=== PATIENT | female | born 1955 | race Caucasian/White ===

== ENCOUNTER 2018-03-20 17:29 | Inpatient (IN) | payer OTHER ==
[~2018-03-20] VITALS: Ht 162.6 cm; Wt 60.0 kg
[2018-03-20 17:42] VITALS: BP 176/75; PULSE 76; RESP 16; TEMP 97.1; O2SAT 95
[2018-03-20] MEDS ORDERED: ATEN25TA PO (18:08)
[2018-03-20] MEDS ORDERED: CYAN1SUB SL (18:08)
--- NOTE | 2018-03-20 18:16 | PD ---
HPI Chief Complaint: Laceration/Skin Injury Time Seen by Provider: 17:52 Travel History International Travel<30 days: No Contact w/Intl Traveler<30days: No Traveled to known affect area: No History of Present Illness HPI 62-year-old female presents to emergency department with complaint of a laceration to her left proximal thigh today from a power barker operator that was on and at full power in spring well water. Unknown tetanus status. Reports swelling to her left knee and air coming from the site of the laceration. Reports decreased range of motion of her knee. Denies paresthesias, loss of sensation to the affected extremity. Denies anticoagulant therapy. Has not taken any medication or trying treatments to alleviate her symptoms. Bandage in place to control bleeding. Bleeding is controlled. Rates pain 10/10. Worse with movement and palpation. Better at rest. Primary care provider is Dr. Rivas. Allergies to Macrobid and Pyridium. History of asthma, COPD, TIA, tachycardia. Has no other medical complaints. No other modifying factors or associated signs and symptoms. PFSH Past Medical History Arthritis: Yes Asthma: Yes Heart Rhythm Problems: Yes (tachy) COPD: Yes Cerebrovascular Accident: Yes Diminished Hearing: No Respiratory: Yes Tetanus Vaccination: < 5 Years Influenza Vaccination: No ?: Not Tubal Ligation: Yes Past Surgical History Cholecystectomy: Yes Eye Surgery: Yes (bilat) Other Surgery: Yes (R breast biopsy) Social History Alcohol Use: Yes (wine occ) Tobacco Use: No (former) Substance Use: No Allergies-Medications (Allergen,Severity, Reaction): Coded Allergies: nitrofurantoin (Verified Allergy, Unknown, CHEST PAIN SWEATING, 03/20/18) phenazopyridine (Verified Allergy, Unknown, CHEST APODACA SWEATING, 03/20/18) Reported Meds & Prescriptions Reported Meds & Active Scripts Active Reported B-12 (Cyanocobalamin) 5,000 Mcg Subl 5,000 Mcg SL Atenolol 25 Mg Tab 25 Mg PO DAILY Review of Systems Except as stated in HPI: all other systems reviewed are Neg Physical Exam Narrative GENERAL: Well-nourished, well-developed femur patient, in no acute distress; afebrile, nontoxic-appearing SKIN: Warm and dry. Approximately 1 cm puncture wound/laceration to the anterior aspect of the left proximal thigh, just above the knee and more to the medial aspect HEAD: Atraumatic. Normocephalic. EYES: Pupils equal and round. No scleral icterus. No injection or drainage. ENT: Mucosa pink and moist. Airway patent. NECK: Trachea midline. CARDIOVASCULAR: Regular rate. RESPIRATORY: No accessory muscle use. GASTROINTESTINAL: Flat MUSCULOSKELETAL: Left knee edematous with subcutaneous emphysema on palpation, non/erythematous, and without ecchymosis; proximately 30-45 flexion; point tenderness to the medial aspect; no obvious deformity. Left lower extremity is supple and non-tense with 2+ pedal pulse and sensory intact. NEUROLOGICAL: Awake and alert. Oriented 3. No obvious cranial nerve deficits. Motor grossly within normal limits. Normal speech. PSYCHIATRIC: Appropriate mood and affect; insight and judgment normal. Data Data Last Documented VS Vital Signs Date Time Temp Pulse Resp B/P (MAP) Pulse Ox O2 Delivery O2 Flow Rate FiO2 03/20/18 17:42 97.1 76 16 176/75 (108) 95 Orders Orders Knee, Complete (4vws) (03/20/18 18:16) Complete Blood Count With Diff (03/20/18 18:16) Comprehensive Metabolic Panel (03/20/18 18:16) Prothrombin Time / Inr (Pt) (03/20/18 18:16) Act Partial Throm Time (Ptt) (03/20/18 18:16) Iv Access Insert/Monitor (03/20/18 18:16) Morphine Inj (Morphine Inj) (03/20/18 18:30) Sodium Chloride 0.9% Flush (Ns Flush) (03/20/18 18:30) Ondansetron Odt (Zofran Odt) (03/20/18 18:30) Gentamicin 80 Mg Premix (Gentamicin 80 M (03/20/18 18:45) Ciprofloxacin 400 Mg Premix (Cipro 400 M (03/20/18 18:45) Electrocardiogram (03/20/18 19:00) Chest, Single Ap (03/20/18 19:00) Consult Orthopedic (03/20/18 ) Admit Order (Ed Use Only) (03/20/18 19:08) Labs Laboratory Tests Test 03/20/18 18:57 White Blood Count 5.4 TH/MM3 Red Blood Count 3.95 MIL/MM3 Hemoglobin 13.1 GM/DL Hematocrit 37.0 % Mean Corpuscular Volume 93.7 FL Mean Corpuscular Hemoglobin 33.3 PG Mean Corpuscular Hemoglobin Concent 35.5 % Red Cell Distribution Width 13.2 % Platelet Count 215 TH/MM3 Mean Platelet Volume 9.2 FL Neutrophils (%) (Auto) 60.5 % Lymphocytes (%) (Auto) 25.2 % Monocytes (%) (Auto) 6.8 % Eosinophils (%) (Auto) 5.4 % Basophils (%) (Auto) 2.1 % Neutrophils # (Auto) 3.2 TH/MM3 Lymphocytes # (Auto) 1.4 TH/MM3 Monocytes # (Auto) 0.4 TH/MM3 Eosinophils # (Auto) 0.3 TH/MM3 Basophils # (Auto) 0.1 TH/MM3 CBC Comment DIFF FINAL Differential Comment Blood Urea Nitrogen 15 MG/DL Creatinine 0.68 MG/DL Random Glucose 90 MG/DL Total Protein 7.4 GM/DL Albumin 4.1 GM/DL Calcium Level 8.9 MG/DL Alkaline Phosphatase 68 U/L Aspartate Amino Transf (AST/SGOT) 36 U/L Alanine Aminotransferase (ALT/SGPT) 32 U/L Total Bilirubin 0.4 MG/DL Sodium Level 134 MEQ/L Potassium Level 4.4 MEQ/L Chloride Level 102 MEQ/L Carbon Dioxide Level 24.8 MEQ/L Anion Gap 7 MEQ/L Estimat Glomerular Filtration Rate 87 ML/MIN [facility] Medical Decision Making Medical Screen Exam Complete: Yes Emergency Medical Condition: Yes Medical Record Reviewed: Yes Differential Diagnosis Puncture wound, subcutaneous emphysema of the left knee, laceration Narrative Course 62-year-old female with a puncture wound of the left knee and subcutaneous emphysema of the left knee. Dr. Potts evaluated the patient and recommended to call orthopedic surgeon, start IV, draw labs for suspected need to go to the OR for irrigation of the knee, and IV Cipro. Orders entered. Left knee x-ray, morphine, Zofran ordered. 1819: Call placed to orthopedic surgeon. 1855: I spoke with CAMILO Davis and patient will be admitted he recommended to add gentamicin. Gentamicin ordered. Preop orders entered. Call placed to ROSAMARIA. 1907: I spoke with ROSAMARIA Lockett and report given for patient admission. Physician Communication Physician Communication CAMILO Davis (Dr. Rocha) ROSAMARIA Lockett Diagnosis Primary Impression: Puncture wound of left knee Qualified Codes: S81.032A - Puncture wound without foreign body, left knee, initial encounter Additional Impression: Subcutaneous emphysema of left knee Admitting Information Admitting Physician Requests: Observation Alesha Engel Mar 20, 2018 18:15
--- NOTE | 2018-03-20 18:25 | PD ---
Physical Exam Date Seen by Provider: Mar 20, 2018 Narrative This patient presents with an injury to her left knee. She was using a portable power tool repairer with well water. She inadvertently "injected" the water, which was under pressure, into her left knee. She subsequently presented to us for evaluation and treatment. Unsure as to the date of her last tetanus shot. She reports an allergy to Macrobid. Data Data Last Documented VS Vital Signs Date Time Temp Pulse Resp B/P (MAP) Pulse Ox O2 Delivery O2 Flow Rate FiO2 03/20/18 17:42 97.1 76 16 176/75 (108) 95 Orders Orders Knee, Complete (4vws) (03/20/18 18:16) Complete Blood Count With Diff (03/20/18 18:16) Comprehensive Metabolic Panel (03/20/18 18:16) Prothrombin Time / Inr (Pt) (03/20/18 18:16) Act Partial Throm Time (Ptt) (03/20/18 18:16) Iv Access Insert/Monitor (03/20/18 18:16) Morphine Inj (Morphine Inj) (03/20/18 18:30) Sodium Chloride 0.9% Flush (Ns Flush) (03/20/18 18:30) Ondansetron Odt (Zofran Odt) (03/20/18 18:30) MDM Supervised Visit with BRIE: Yes Narrative Course I, Dr. Potts, have reviewed the advance practice practitioner's documentation and am in agreement, met with the patient face to face, made the diagnosis, and the medical decision making was done by me. *My assessment and Findings: She has a puncture wound just superior to the patella. She has crepitus and tenderness to a couple of centimeters below the patella. I have asked Alesha to update her tetanus. She will consult orthopedics for further advice. In the meantime, plain films will be done. I suspect that this patient will need to be transported to [facility] [place] management. Please see Alesha Engel NP's note for results of laboratory and radiographic evaluation, ED course, final diagnosis and disposition Milli Potts MD Mar 20, 2018 18:25
[2018-03-20] MEDS ORDERED: MORPHINE SULFATE 4 MG/ML INJ IV PUSH ONE (18:30)
[2018-03-20] MEDS ORDERED: SODIUM CHLORIDE 0.9% FLUSH 10 ML FLUSH IV FLUSH PRN ×2 (18:30→19:15)
[2018-03-20] MEDS ORDERED: ONDANSETRON ODT 4 MG TAB PO ONE (18:30)
[2018-03-20] MEDS ORDERED: GENTAMICIN 80 MG IV ONE (18:45)
[2018-03-20] MEDS ORDERED: CIPROFLOXACIN 400 MG PREMIX 200 ML IV ONE (18:45)
[2018-03-20 19:03] LABS: AUTOMATED NEUTROPHIL # 3.2 TH/MM3 (1.8-7.7); BASOPHIL # 0.1 TH/MM3 (0-0.2); BASOPHIL % 2.1 % (0.0-2.0); EOSINOPHIL # 0.3 TH/MM3 (0-0.4); EOSINOPHIL % 5.4 % (0.0-4.0); HEMOGLOBIN 13.1 GM/DL (11.6-15.3); LYMPH % 25.2 % (9.0-44.0); LYMPHOCYTE # 1.4 TH/MM3 (1.0-4.8); MEAN CELL VOLUME 93.7 FL (80.0-100.0); MEAN CORPUSCULAR HEMOGLOBIN 33.3 PG (27.0-34.0); MEAN CORPUSCULAR HGB CONC 35.5 % (32.0-36.0); MEAN PLATELET VOLUME 9.2 FL (7.0-11.0); MONO % 6.8 % (0.0-8.0); MONOCYTE # 0.4 TH/MM3 (0-0.9); NEUT % 60.5 % (16.0-70.0); PLATELET COUNT 215 TH/MM3 (150-450); RED BLOOD COUNT 3.95 MIL/MM3 (4.00-5.30); RED CELL DISTRIBUTION WIDTH 13.2 % (11.6-17.2); WHITE BLOOD COUNT 5.4 TH/MM3 (4.0-11.0)
[2018-03-20] MEDS ORDERED: MORPHINE SULFATE 4 MG/ML INJ IV PUSH PRN (19:15)
[2018-03-20] MEDS ORDERED: METOCLOPRAMIDE HCL 10 MG/2 ML VIAL IV PUSH PRN (19:15)
[2018-03-20] MEDS ORDERED: BISACODYL 10 MG SUPP RECTAL PRN (19:15)
[2018-03-20] MEDS ORDERED: SENNOSIDES 8.6 MG TAB PO PRN (19:15)
[2018-03-20] MEDS ORDERED: LACTULOSE SYRUP 20 GM/30 ML CUP PO PRN (19:15)
[2018-03-20] MEDS ORDERED: MAGNESIUM HYDROXIDE SUSP 30 ML CUP PO PRN (19:15)
[2018-03-20] MEDS ORDERED: ACETAMINOPHEN 325 MG TAB PO PRN (19:15)
[2018-03-20 19:21] LABS: CHLORIDE 102 MEQ/L (98-107); SODIUM (NA) 134 MEQ/L (136-145)
[2018-03-20 19:24] LABS: ALBUMIN 4.1 GM/DL (3.4-5.0); BICARBONATE 24.8 MEQ/L (21.0-32.0); BLOOD UREA NITROGEN 15 MG/DL (7-18); CALCIUM 8.9 MG/DL (8.5-10.1); GLUCOSE,RANDOM 90 MG/DL (74-106)
[2018-03-20 19:27] LABS: ALT (GPT) 32 U/L (10-53); AST (GOT) 36 U/L (15-37); CREATININE 0.68 MG/DL (0.50-1.00); GLOMERULAR FILTRATION RATE 87 ML/MIN (>89)
[2018-03-20 19:29] LABS: TOTAL BILIRUBIN ADULT 0.4 MG/DL (0.2-1.0); TOTAL PROTEIN 7.4 GM/DL (6.4-8.2)
[2018-03-20 19:30] LABS: ALKALINE PHOSPHATASE 68 U/L (45-117)
[2018-03-20 19:31] LABS: INTERNATIONAL NORMALIZED RATIO 1.1 RATIO; PROTHROMBIN TIME - PATIENT 10.7 SEC (9.8-11.6)
[2018-03-20] MEDS ORDERED: TETANUS/DIPHTHERIA TOXOID ADULT 0.5 ML VIAL IM ONE (19:45)
--- NOTE | 2018-03-20 20:02 | RADRPT ---
EXAM DATE: 03/20/2018 7:48 PM EDT AGE/SEX: 62 years / Female INDICATIONS: Fall. Left knee pain. CLINICAL DATA: This is the patient's initial encounter. Patient reports that signs and symptoms have been present for 1 day and indicates a pain score of 7/10. MEDICAL/SURGICAL HISTORY: None. None. COMPARISON: No prior exams available for comparison. FINDINGS: There is a laceration with air in the subcutaneous tissues of the distal thigh and proximal leg. Ques tion avulsion fracture at the superior aspect of the patella. No dislocation. Meniscal calcifications noted. CONCLUSION: Air in soft tissues presumably from laceration. Questionable tiny avulsion fracture superior pole of the patella. No significant joint effusion. Electronically signed by: Jason Stapleton MD 03/20/2018 8:01 PM EDT
[2018-03-20] MEDS: SODIUM CHLOR 0.9% 1000 ML INJ 1,000 ML IV SCH (20:17)
[2018-03-20] MEDS: DOCUSATE SODIUM 50 MG/SENNA 8.6 MG TAB PO SCH (21:00)
[2018-03-20] MEDS: SODIUM CHLORIDE 0.9% FLUSH 10 ML FLUSH IV FLUSH SCH (21:00)
[2018-03-20 22:02] VITALS: BP 109/56; PULSE 57; RESP 16; O2SAT 97
[2018-03-20] MEDS ORDERED: LATA0.002 EACH EYE (22:08)
[2018-03-20] MEDS ORDERED: DICL75TA PO (22:08)
--- NOTE | 2018-03-20 23:14 | HHI.HP ---
HPI Service [facility] Primary Care Physician Non-Staff Admission Diagnosis Puncture wound of left knee with subcutaneous emphysema Diagnoses: Chief Complaint: Left knee pain Travel History International Travel<30 Days: No Contact w/Intl Traveler <30 Da: No Traveled to Known Affected Are: No History of Present Illness 62-year-old female with a history of arthritis, COPD, tachycardia, OCD and asthma presented to the ED with complaints of a laceration on her left knee. She states she was using a prune washer today and the spray nozzle hit the top of her knee and the force of the water caused a laceration. Patient noted crackling under the skin around the laceration site. Patient states the pain is a throbbing, intermittent, 10/10, with no radiation, worse with movement and palpation, better with rest. Denies any associated symptoms such as chest pain or shortness of breath. Review of Systems Except as stated in HPI: all other systems reviewed are Neg Past Family Social History Past Medical History Arthritis COPD Tachycardia Asthma Past Surgical History Cholecystectomy Breast biopsy Bilateral eye surgery Reported Medications Reported Meds & Active Scripts Active Reported Latanoprost Opth Drops (Latanoprost) 0.005% Drops 1 Drop EACH EYE HS Refrigerate until opened. Diclofenac Sodium DR (Diclofenac Sodium) 75 Mg Tabdr 75 Mg PO BID B-12 (Cyanocobalamin) 5,000 Mcg Subl 5,000 Mcg SL Atenolol 25 Mg Tab 25 Mg PO DAILY Allergies: Coded Allergies: nitrofurantoin (Verified Allergy, Unknown, CHEST PAIN SWEATING, 03/20/18) phenazopyridine (Verified Allergy, Unknown, CHEST APODACA SWEATING, 03/20/18) Active Ordered Medications Current Medications Medications (Trade) Dose Ordered Sig/Christina Route Start Time Stop Time Status Last Admin Sodium Chloride 1,000 ml @ 100 mls/hr Q10H IV 03/20/18 19:06 03/20/18 20:17 (NS Flush) 2 ml UNSCH PRN IV FLUSH 03/20/18 19:15 (NS Flush) 2 ml BID IV FLUSH 03/20/18 21:00 03/20/18 21:00 (Reglan Inj) 5 mg Q6H PRN IV PUSH 03/20/18 19:15 (Tylenol) 650 mg Q6H PRN PO 03/20/18 19:15 ([place] 5-325 Mg) 1 tab Q4H PRN PO 03/20/18 19:15 (Bree-Colace) 1 tab BID PO 03/20/18 21:00 (Milk Of Magnesia Liq) 30 ml Q12H PRN PO 03/20/18 19:15 (Senokot) 17.2 mg Q12H PRN PO 03/20/18 19:15 (Dulcolax Supp) 10 mg DAILY PRN RECTAL 03/20/18 19:15 (Lactulose Liq) 30 ml DAILY PRN PO 03/20/18 19:15 (Xalatan 0.005% Opth Soln) 1 drop HS EACH EYE 03/21/18 21:00 (Duoneb Neb) 1 ampule Q4HR NEB PRN NEB 03/20/18 23:15 Ciprofloxacin/ Dextrose 200 ml @ 200 mls/hr Q12H IV 03/21/18 08:00 Gentamicin Sulfate 60 mg/ Sodium Chloride 101.5 ml @ 100 mls/hr Q8H IV 03/21/18 01:00 (Tenormin) 25 mg DAILY PO 03/21/18 21:00 (Dilaudid Pf Inj) 0.2 mg Q4H PRN IV PUSH 03/21/18 00:15 (Benadryl) 25 mg Q6H PRN PO 03/21/18 00:15 Family History Mom: ovarian cancer, Asthma Dad: DM, CAD Social History Tobacco use: Former smoker Alcohol use: wine occasionally Physical Exam Vital Signs Vital Signs Date Time Temp Pulse Resp B/P (MAP) Pulse Ox O2 Delivery O2 Flow Rate FiO2 03/20/18 22:32 03/20/18 22:02 57 16 109/56 (73) 97 Room Air 03/20/18 17:42 97.1 76 16 176/75 (108) 95 Physical Exam GENERAL: This is a well-nourished, well-developed patient, in no apparent distress. SKIN:Left knee small laceration with surrounding subq air minimal sanguinous drainage HEAD: Atraumatic. Normocephalic. No temporal or scalp tenderness. EYES: Pupils equal round and reactive. CARDIOVASCULAR: Regular rate and rhythm without murmurs, gallops, or rubs. RESPIRATORY: Clear to auscultation. Breath sounds equal bilaterally. No wheezes , rales, or rhonchi. GASTROINTESTINAL: Abdomen soft, non-tender, nondistended. No hepato-splenomegaly , or palpable masses. No guarding. MUSCULOSKELETAL: Extremities without clubbing, cyanosis, or edema. Left knee tenderness and decreased ROM. No calf tenderness. NEUROLOGICAL: Awake and alert. Normal speech. Laboratory Laboratory Tests Test 03/20/18 18:57 White Blood Count 5.4 Red Blood Count 3.95 Hemoglobin 13.1 Hematocrit 37.0 Mean Corpuscular Volume 93.7 Mean Corpuscular Hemoglobin 33.3 Mean Corpuscular Hemoglobin Concent 35.5 Red Cell Distribution Width 13.2 Platelet Count 215 Mean Platelet Volume 9.2 Neutrophils (%) (Auto) 60.5 Lymphocytes (%) (Auto) 25.2 Monocytes (%) (Auto) 6.8 Eosinophils (%) (Auto) 5.4 Basophils (%) (Auto) 2.1 Neutrophils # (Auto) 3.2 Lymphocytes # (Auto) 1.4 Monocytes # (Auto) 0.4 Eosinophils # (Auto) 0.3 Basophils # (Auto) 0.1 CBC Comment DIFF FINAL Differential Comment Prothrombin Time 10.7 Prothromb Time International Ratio 1.1 Activated Partial Thromboplast Time 20.2 Blood Urea Nitrogen 15 Creatinine 0.68 Random Glucose 90 Total Protein 7.4 Albumin 4.1 Calcium Level 8.9 Alkaline Phosphatase 68 Aspartate Amino Transf (AST/SGOT) 36 Alanine Aminotransferase (ALT/SGPT) 32 Total Bilirubin 0.4 Sodium Level 134 Potassium Level 4.4 Chloride Level 102 Carbon Dioxide Level 24.8 Anion Gap 7 Estimat Glomerular Filtration Rate 87 Result Diagram: 03/20/18 1857 03/20/18 1857 Imaging Last Impressions Knee X-Ray 03/20/18 1816 Signed Impressions: CONCLUSION: Air in soft tissues presumably from laceration. Questionable tiny avulsion frac ture superior pole of the patella. No significant joint effusion. Caprini VTE Risk Assessment Caprini VTE Risk Assessment: No/Low Risk (score <= 1) Caprini Risk Assessment Model Point Value = 1 Point Value = 2 Point Value = 3 Point Value = 5 Age 41-60 Minor surgery BMI > 25 kg/m2 Swollen legs Varicose veins or History of unexplained or recurrent spontaneous Oral contraceptives or hormone replacement Sepsis (< 1 month) Serious lung disease, including pneumonia (< 1 month) Abnormal pulmonary function Acute myocardial infarction Congestive heart failure (< 1 month) History of inflammatory bowel disease Medical patient at bed rest Age 61-74 Arthroscopic surgery Major open surgery (> 45 min) Laparoscopic surgery (> 45 min) Malignancy Confined to bed (> 72 hours) Immobilizing plaster cast Central venous access Age >= 75 History of VTE Family history of VTE Factor V Leiden Prothrombin [id number] Lupus anticoagulant Anticardiolipin antibodies Elevated serum homocysteine Heparin-induced thrombocytopenia Other congenital or acquired thrombophilia Stroke (< 1 month) Elective arthroplasty Hip, pelvis, or leg fracture Acute spinal cord injury (< 1 month) Prophylaxis Regimen Total Risk Factor Score Risk Level Prophylaxis Regimen 0-1 Low Early ambulation 2 Moderate Order ONE of the following: *Sequential Compression Device (SCD) *Heparin 5000 units SQ BID 3-4 Higher Order ONE of the following medications: *Heparin 5000 units SQ TID *Enoxaparin/Lovenox 40 mg SQ daily (WT < 150 kg, CrCl > 30 mL/min) *Enoxaparin/Lovenox 30 mg SQ daily (WT < 150 kg, CrCl > 10-29 mL/min) *Enoxaparin/Lovenox 30 mg SQ BID (WT < 150 kg, CrCl > 30 mL/min) AND/OR *Sequential Compression Device (SCD) 5 or more Highest Order ONE of the following medications: *Heparin 5000 units SQ TID (Preferred with Epidurals) *Enoxaparin/Lovenox 40 mg SQ daily (WT < 150 kg, CrCl > 30 mL/min) *Enoxaparin/Lovenox 30 mg SQ daily (WT < 150 kg, CrCl > 10-29 mL/min) *Enoxaparin/Lovenox 30 mg SQ BID (WT < 150 kg, CrCl > 30 mL/min) AND *Sequential Compression Device (SCD) Assessment and Plan Assessment and Plan 62-year-old female with a history of arthritis, COPD, tachycardia, OCD and asthma presented to the ED with complaints of a laceration on her left knee. Left knee avulsion fracture with subcutaneous air Knee x-ray shows subcutaneous air with a tiny avulsion fracture -Consult orthopedic -NPO, IV hydration -Pain management with IV Dilaudid and [place] -IV antibiotics ciprofloxacin and gentamicin Tachycardia, chronic -Continue home atenolol, monitor telemetry COPD, chronic, not in exacerbation -DuoNeb's as needed DVT prophylaxis: SCDs, hold chemical due to surgery in a.m. Discussed Condition With Patient and RN Physician Certification 2 Midnight Certification Type: Admission for Inpatient Services Order for Inpatient Services The services are ordered in accordance with Medicare regulations or non- Medicare payer requirements, as applicable. In the case of services not specified as inpatient-only, they are appropriately provided as inpatient services in accordance with the 2-midnight benchmark. Estimated LOS (days): 2 days is the estimated time the patient will need to remain in the hospital, assuming treatment plan goals are met and no additional complications. Post-Hospital Plan: [place] Leti Viera Mar 20, 2018 23:14
[2018-03-20] MEDS ORDERED: RESP: ALBUTEROL 2.5 MG/IPRATROPIUM 0.5 MG NEB (PRN) NEB (23:15)
[2018-03-20 23:17] VITALS: BP 133/67; PULSE 73; RESP 20; TEMP 97.4; O2SAT 97
[2018-03-21] MEDS ORDERED: diphenhydrAMINE HCL 25 MG CAP PO PRN (00:15)
[2018-03-21] MEDS ORDERED: CALCIUM CARBONATE 500 MG CHEWABLE TAB CHEW PRN (00:45)
[2018-03-21] MEDS: GENTAMICIN INJ 60 MG in SODIUM CHLORIDE 0.9% INJ 100 ML IV SCH ×3 (01:33→17:01)
[2018-03-21] MEDS: ACETAMINOPHEN/HYDROcodone 325 MG/5 MG TAB PO PRN (02:45)
[2018-03-21] MEDS ORDERED: LIDO1PAD52 TOPICAL (03:13)
[2018-03-21] MEDS ORDERED: VOLT1GEL16 (03:13)
[2018-03-21] MEDS ORDERED: ALBUAER3 INH (03:13)
[2018-03-21] MEDS ORDERED: CHLORHEXIDINE GLUCONATE 2 % 1 PACK (2 CLOTHS) TOPICAL PRN (03:45)
[2018-03-21] MEDS ORDERED: LACTATED RINGER'S 1000 ML IV PRN (03:45)
[2018-03-21] MEDS ORDERED: POVIDONE IODINE 5% (ANTISEPSIS KIT) 4 APPLICATIONS EACH NARE PRN (03:45)
[2018-03-21] MEDS ORDERED: SODIUM CHLORID 0.9% 500 ML IV PRN (03:45)
[2018-03-21] MEDS ORDERED: GENTAMICIN INJ 60 MG in SODIUM CHLORIDE 0.9% INJ 100 ML IV SCH (05:00)
[2018-03-21] MEDS: SODIUM CHLOR 0.9% 1000 ML INJ 1,000 ML IV SCH ×2 (05:06→11:36)
[2018-03-21] MEDS ORDERED: CIPROFLOXACIN 400 MG PREMIX 200 ML IV SCH (06:00)
--- NOTE | 2018-03-21 07:38 | HHI.PR ---
Subjective Remarks Patient seen and examined this morning, their vitals are stable and the patient is afebrile. Reports pain in knee. Denies CP or SOB. Objective Vital Signs Date Time Temp Pulse Resp B/P (MAP) Pulse Ox O2 Delivery O2 Flow Rate FiO2 03/20/18 23:17 97.4 73 20 133/67 (89) 97 03/20/18 22:32 03/20/18 22:02 57 16 109/56 (73) 97 Room Air 03/20/18 17:42 97.1 76 16 176/75 (108) 95 I/O 03/20/18 03/20/18 03/20/18 03/21/18 03/21/18 03/21/18 07:00 15:00 23:00 07:00 15:00 23:00 Intake Total 200 ml 601.5 ml Balance 200 ml 601.5 ml Intake IV Total 200 ml 601.5 ml # Voids 3 Result Diagram: 03/20/18185603/20/181856 Imaging Last Impressions Knee X-Ray 03/20/181815 Signed Impressions: CONCLUSION: Air in soft tissues presumably from laceration. Questionable tiny avulsion frac ture superior pole of the patella. No significant joint effusion. Objective Remarks GENERAL: Well-appearing, no acute distress SKIN: Warm and dry. HEAD: Normocephalic. EYES: No scleral icterus. No injection or drainage. NECK: Supple, trachea midline. No JVD or lymphadenopathy. CARDIOVASCULAR: Regular rate and rhythm without murmurs, gallops, or rubs. RESPIRATORY: Breath sounds equal bilaterally. No accessory muscle use. GASTROINTESTINAL: Abdomen soft, non-tender, nondistended. MUSCULOSKELETAL: No cyanosis, or edema. Left Knee: small puncture wound, knee diffusely swollen with limited ROM due to pain. A/P Problem List: (1) Puncture wound of left knee ICD Code: S81.032A - Puncture wound without foreign body, left knee, initial encounter Status: Acute Assessment and Plan In summary this is a 62-year-old female patient with a medically significant for arthritis, COPD, and tachycardia who presented to [facility] with a laceration of her left knee after injury from stator plate washer. X-ray significant for small avulsion fracture. Left knee avulsion fracture with subcutaneous air -Orth O has been consulted, antibiotics per below, OR today for irrigation -Pain management with [place] and Dilaudid -IV antibiotics with Cipro and gentamicin Tachycardia, chronic -Continue home medications: atenolol, monitor in telemetry COPD, chronic, not in acute exacerbation -Duo nebs as needed DVT prophylaxis: Bilateral SCDs Discharge Planning d/c pending ortho clearance Problem Qualifiers (1) Puncture wound of left knee: Qualified Codes: S81.032A - Puncture wound without foreign body, left knee, initial encounter Juliette Dubon MD Mar 21, 2018 07:38
[2018-03-21 08:00] VITALS: BP 121/59; PULSE 55; RESP 17; TEMP 97.8; O2SAT 96
[2018-03-21] MEDS: SODIUM CHLORIDE 0.9% FLUSH 10 ML FLUSH IV FLUSH SCH ×2 (08:05→20:48)
[2018-03-21] MEDS: DOCUSATE SODIUM 50 MG/SENNA 8.6 MG TAB PO SCH ×2 (08:06→20:58)
[2018-03-21] MEDS: CIPROFLOXACIN 400 MG PREMIX 200 ML IV SCH ×2 (08:06→20:46)
[2018-03-21] MEDS ORDERED: ATENOLOL 25 MG TAB PO SCH (09:00)
[2018-03-21] MEDS ORDERED: GENTAMICIN SULFATE 80 MG/2 ML VIAL ONE (09:10)
[2018-03-21] MEDS ORDERED: SODIUM CHLOR 0.9% 250 ML INJ 0 ML ONE (09:10)
[2018-03-21] MEDS ORDERED: VANCOMYCIN HCL 1000 MG VIAL ONE (09:10)
[2018-03-21] MEDS ORDERED: ceFAZolin 2 GM PREMIX 0 ML ONE (09:11)
--- NOTE | 2018-03-21 09:19 | MB ---
cc: Jules Rocha MD DATE: 03/21/2018 REASON FOR CONSULTATION: Left knee laceration from a cullet crusher and washer. CONSULTING PHYSICIAN: Dr. Jane. HISTORY OF PRESENT ILLNESS: Stacie is a 62-year-old female who was using a cullet crusher and washer. She was cleaning off her driveway. She slipped and fell. The spray nozzle hit against her knee. The cullet crusher and washer caused a tear of the skin and injected water into the wound. She was using well water. Her only complaint is her left knee. She is currently awake and alert on the orthopedic floor. Pain is worse with movement and is improved with rest. She denies any other injuries other than her left knee. PAST MEDICAL HISTORY: Illnesses: Arthritis, COPD, tachycardia, asthma. PAST SURGICAL HISTORY: Cholecystectomy, bilateral eye surgery and breast biopsy. MEDICATIONS: 1. Latanoprost. 2. Diclofenac. 3. B12. 4. Atenolol. ALLERGIES: NITROFURANTOIN, PHENAZOPYRIDINE. FAMILY HISTORY: Positive for ovarian cancer and asthma in her mother and diabetes and coronary artery disease in father. SOCIAL HISTORY: She is a former smoker. She drinks occasional wine. REVIEW OF SYSTEMS: The patient denies headache, visual changes, neck pain, chest pain, shortness of breath, abdominal pain, nausea, vomiting, recent weight loss, fever, chills, numbness or tingling of extremities or bowel or bladder incontinence. She complains of left knee pain. The pain is worse with movement. LABORATORY DATA: The patient has a white blood cell count of 5.4, hematocrit 37, platelet count of 215. INR 1.1. Potassium 4.4, creatinine 0.68. X-RAYS: X-rays of the left knee were reviewed. X-rays reveal mild arthritic changes of the left knee. There is a soft tissue injury visible around the anterior knee. PHYSICAL EXAMINATION: GENERAL: The patient is a pleasant 62-year-old female. She is awake and alert. She is alert and oriented x3. She is in no acute distress. VITAL SIGNS: Temperature 97.4, pulse 73, respirations 20, blood pressure 133/67, O2 saturation 97% on room air. HEENT: Head: The patient is normocephalic. Pupils are equal. NECK: Soft, nontender. The trachea is in the midline. ABDOMEN: Soft, nontender, nondistended. EXTREMITIES: Examination of bilateral upper extremities reveals no pain with shoulder, elbow or wrist motion. She has intact sensation in all fingers. She has good capillary refill in all fingers. Skin is intact. Radial pulses are palpable. Examination of right leg reveals no pain with hip, knee or ankle motion. Skin is intact. Dorsalis pedis pulses palpable. Sensation is intact. Examination of left leg reveals no tenderness around her hip or ankle. Thigh and calf compartments are soft. Sensation is intact in the left foot. Dorsalis pedis pulses palpable. Examination of the left knee reveals a 1 cm open wound. There is tenderness to palpation around the anterior knee. There is mild crepitus at the skin. There is no erythema. IMPRESSION: 1. Chronic obstructive pulmonary disease. 2. Asthma. 3. Left knee soft tissue injection injury secondary to cullet crusher and washer with well water. PLAN: Treatment options were discussed with the patient. At this point, I would recommend irrigation and debridement of the left knee. I explained to the patient that the untreated well water has a higher risk of infection. There may be significant soft tissue injury underneath the skin. Risks of surgery include bleeding, infection, injuries to arteries, nerves and blood vessels, wound complications, need for additional surgery, as well as medical complications associated with anesthesia. All questions were answered. I will plan on surgery today. Postoperatively, the patient will likely be placed on antibiotics. A mid-level provider in my office, nurse practitioner or PA, may see this patient on a follow-up basis and continue to implement the objective of this plan including: Starting or adjusting medications, injections of muscle, tendon, bursa or joints, cast application, orthotic or brace application, physical therapy, further radiographic studies including x-ray, MRI, CT, ultrasounds or bone scan, vascular studies, neurologic studies, or other specialist consultations, and proceeding with surgical management as appropriate. MD ROBERT Meléndez/DELMAR , 07:56 AM , 09:17 AM
[2018-03-21] MEDS ORDERED: CIPR-9 PO (09:52)
[2018-03-21] MEDS ORDERED: NORC5TAB PO (09:52)
[2018-03-21] MEDS ORDERED: CEPH-460 PO (09:52)
[2018-03-21] MEDS ORDERED: ONDANSETRON ODT 4 MG TAB PO PRN (10:00)
[2018-03-21] MEDS ORDERED: Post-op Orders (for Pharmacy) XX ONE (10:00)
--- NOTE | 2018-03-21 10:05 | PD.OP ---
cc: Jules Gutierrez MD Operative Report Date of Surgery: Mar 21, 2018 Preoperative Diagnosis: Left knee laceration from a prune washer with well water Postoperative Diagnosis: Procedure: Irrigation and debridement of left knee and bursa Anesthesia: General Surgeon: Jules Gutierrez Tumbling Machine Operator(s): Ryan Deluca PA-C The surgical procedure was assisted by my physician hygiene assistant. My P.A. presence was necessary throughout this case for the manipulation and positioning of the surgical extremity. My P.A. was assisting me throughout the duration of this procedure. The skill set of a physician hygiene assistant was medically necessary to complete this procedure. During the surgical case the medical surgical tech was working at the back table and the physician hygiene assistant was directly assisting me. Operation and Findings: Stacie was seen and evaluated preoperatively. She actually hit her left knee with a prune washer and had an injection type injury with well water. Informed consent was obtained and operative site was marked. She is brought to operating room. She was given IV sedation and general anesthesia. Timeout procedure was performed. Left leg was prepped with alcohol followed by Hibiclens and draped in usual sterile fashion. She received IV antibiotics. Procedure began with an incision over the anterior knee. The traumatic laceration was extended proximally and distally. There was a pocket anterior to the patella from the injection injury. There was some fat necrosis. Excisional debridement was performed. Subcutaneous tissue fascia and prepatellar bursa were excised. Overall the wound appeared to be relatively clean. After thorough debridement of the wound was irrigated with pulsatile lavage. The incision was closed with 3-0 PDS and 3-0 nylon. Sterile dressings were applied. Patient was awakened and transferred to recovery room in stable condition. Jules Gutierrez MD Mar 21, 2018 10:05
[2018-03-21] MEDS ORDERED: DO NOT ADM ANY ANTICOAGULANT DRUGS PRN (10:18)
[2018-03-21] MEDS ORDERED: *morphine SULFATE 4 MG/ML PERIprocedure ONLY ONE (10:27)
[2018-03-21] MEDS: DICLOFENAC SODIUM 75 MG DELAYED RELEASE TAB PO SCH ×2 (11:36→21:03)
[2018-03-21 12:00] VITALS: BP 106/57; PULSE 64; RESP 18; TEMP 97.3; O2SAT 99
[2018-03-21] MEDS ORDERED: ePHEDrine/NS 25 MG/5 ML SYRINGE IV ONE (12:00)
[2018-03-21] MEDS ORDERED: ROCURONIUM INJ 50 MG/5 ML SYRINGE IV PUSH ONE (12:00)
[2018-03-21] MEDS ORDERED: PHENYLEPH/NS 1000 MCG/10 ML SYR IV ONE (12:00)
[2018-03-21] MEDS ORDERED: DEXAMETHASONE SOD PHOS 4 MG/ML VIAL IV ONE (12:00)
[2018-03-21] MEDS ORDERED: LIDOCAINE HCL 1% PF 5 ML SYRINGE OTHER ONE (12:00)
[2018-03-21] MEDS ORDERED: ONDANSETRON HCL 4 MG/2 ML VIAL IV ONE (12:00)
[2018-03-21] MEDS ORDERED: PROPOFOL 200 MG/20 ML AMP IV ONE (12:00)
[2018-03-21 12:24] LABS: AUTOMATED NEUTROPHIL # 2.2 TH/MM3 (1.8-7.7); BASOPHIL % 0.5 % (0.0-2.0); EOSINOPHIL # 0.1 TH/MM3 (0-0.4); EOSINOPHIL % 3.6 % (0.0-4.0); HEMATOCRIT 36.7 % (35.0-46.0); HEMOGLOBIN 12.3 GM/DL (11.6-15.3); LYMPH % 25.9 % (9.0-44.0); LYMPHOCYTE # 0.9 TH/MM3 (1.0-4.8); MEAN CELL VOLUME 96.1 FL (80.0-100.0); MEAN CORPUSCULAR HEMOGLOBIN 32.3 PG (27.0-34.0); MEAN CORPUSCULAR HGB CONC 33.6 % (32.0-36.0); MEAN PLATELET VOLUME 9.2 FL (7.0-11.0); MONO % 6.1 % (0.0-8.0); MONOCYTE # 0.2 TH/MM3 (0-0.9); NEUT % 63.9 % (16.0-70.0); PLATELET COUNT 145 TH/MM3 (150-450); RED BLOOD COUNT 3.82 MIL/MM3 (4.00-5.30); WHITE BLOOD COUNT 3.5 TH/MM3 (4.0-11.0)
[2018-03-21 12:48] LABS: ALBUMIN 3.1 GM/DL (3.4-5.0); AST (GOT) 692 U/L (15-37); BICARBONATE 21.7 MEQ/L (21.0-32.0); BLOOD UREA NITROGEN 7 MG/DL (7-18); CALCIUM 8.2 MG/DL (8.5-10.1); CHLORIDE 107 MEQ/L (98-107); CREATININE 0.58 MG/DL (0.50-1.00); GLOMERULAR FILTRATION RATE 105 ML/MIN (>89); GLUCOSE,RANDOM 82 MG/DL (74-106); SODIUM (NA) 137 MEQ/L (136-145)
[2018-03-21 12:52] LABS: ALKALINE PHOSPHATASE 88 U/L (45-117); ALT (GPT) 615 U/L (10-53); TOTAL BILIRUBIN ADULT 0.7 MG/DL (0.2-1.0); TOTAL PROTEIN 5.9 GM/DL (6.4-8.2)
--- NOTE | 2018-03-21 14:39 | EKG ---
Date Performed: 03/20/2018 Time Performed: 19:13:38 PTAGE: 62 years EKG: Sinus rhythm NORMAL ECG NO PREVIOUS TRACING DOCTOR: Rigo Vasquez Interpretating Date/Time 03/21/2018 14:36:15
[2018-03-21] MEDS: HYDROmorphone HCL PF 2 MG/ML VIAL IV PUSH PRN (14:54)
[2018-03-21] MEDS ORDERED: ZOLO50TA PO (15:40)
[2018-03-21 16:00] VITALS: BP 112/59; PULSE 59; RESP 16; TEMP 98.5; O2SAT 97
[2018-03-21] MEDS: SERTRALINE HCL 50 MG TAB PO SCH (17:01)
[2018-03-21] MEDS ORDERED: TETANUS/DIPHTHERIA TOXOID ADULT 0.5 ML VIAL IM ONE (20:00)
[2018-03-21 20:24] VITALS: BP 115/54; PULSE 65; RESP 16; TEMP 97.7; O2SAT 96
--- NOTE | 2018-03-21 20:59 | HHI.PR ---
Subjective Remarks NOT SEEN Objective Vitals Vital Signs Date Time Temp Pulse Resp B/P (MAP) Pulse Ox O2 Delivery O2 Flow Rate FiO2 03/21/18 20:24 97.7 65 16 115/54 (74) 96 03/21/18 16:00 98.5 59 16 112/59 (76) 97 03/21/18 12:00 97.3 64 18 106/57 (73) 99 03/21/18 10:45 97.7 73 18 115/59 (77) 99 Nasal Cannula 2 03/21/18 10:30 72 18 128/60 (82) 98 Nasal Cannula 2 03/21/18 10:14 97.6 76 18 118/56 (76) 100 Nasal Cannula 2 03/21/18 08:00 97.8 55 17 121/59 (79) 96 03/20/18 23:17 97.4 73 20 133/67 (89) 97 03/20/18 22:32 03/20/18 22:02 57 16 109/56 (73) 97 Room Air I/O 03/20/18 03/20/18 03/20/18 03/21/18 03/21/18 03/21/18 06:59 14:59 22:59 06:59 14:59 22:59 Intake Total 200 ml 601.5 ml 1100 ml 1110 ml Output Total 30 ml Balance 200 ml 601.5 ml 1070 ml 1110 ml Intake Oral 400 ml IV Total 200 ml 601.5 ml 300 ml 710 ml Other 800 ml Output Estimated Blood Loss 30 ml # Voids 3 4 # Bowel Movements 0 Result Diagram: 03/21/18 1135 03/21/18 1135 Imaging Last Impressions Knee X-Ray 03/20/18 1816 Signed Impressions: CONCLUSION: Air in soft tissues presumably from laceration. Questionable tiny avulsion frac ture superior pole of the patella. No significant joint effusion. Objective Remarks GENERAL: Well-appearing, no acute distress SKIN: Warm and dry. HEAD: Normocephalic. EYES: No scleral icterus. No injection or drainage. NECK: Supple, trachea midline. No JVD or lymphadenopathy. CARDIOVASCULAR: Regular rate and rhythm without murmurs, gallops, or rubs. RESPIRATORY: Breath sounds equal bilaterally. No accessory muscle use. GASTROINTESTINAL: Abdomen soft, non-tender, nondistended. MUSCULOSKELETAL: No cyanosis, or edema. Left Knee: small puncture wound, knee diffusely swollen with limited ROM due to pain. 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 X-ray significant for small avulsion fracture. Left knee avulsion fracture with subcutaneous air -Orth O has been consulted, antibiotics per below s/p irrigation -Pain management with Gaston and Dilaudid -IV antibiotics with Cipro and gentamicin Tachycardia, chronic -Continue home medications: atenolol, monitor in telemetry COPD, chronic, not in acute exacerbation -Duo nebs as needed DVT prophylaxis: Bilateral SCDs Problem Qualifiers (1) Puncture wound of left knee: Qualified Codes: S81.032A - Puncture wound without foreign body, left knee, initial encounter Jaren Pardo MD Mar 21, 2018 20:59
[2018-03-21] MEDS ORDERED: LATANOPROST 0.005% OPHT SOLN 2.5 ML BTL EACH EYE SCH (21:00)
[2018-03-21] MEDS: ATENOLOL 25 MG TAB PO SCH (21:03)
--- NOTE | 2018-03-21 21:09 | HHI.DCPOC ---
Discharge Care Plan Diagnosis: (1) Puncture wound of left knee Your Health Problems Are: Difficulty with ADL Exercise Tolerance Goals to Promote Your Health * To prevent worsening of your condition and complications * To maintain your health at the optimal level Directions to Meet Your Goals Take your medications as prescribed Follow your dietary instruction Follow activity as directed Keep your appointments as scheduled Take your immunizations and boosters as scheduled If your symptoms worsen call your PCP, if no PCP go to Urgent Care Center or Emergency Room Smoking is Dangerous to Your Health. Avoid second hand smoke Call the 24-hour hour crisis hotline for domestic abuse at Jaren Pardo MD Mar 21, 2018 21:09
--- NOTE | 2018-03-21 21:09 | HHI.FF ---
Face to Face Verification Diagnosis: (1) Puncture wound of left knee Physical Therapy Order: Evaluate and Treat, Improve ambulation, Strength and gait training I have seen patient Stacie Dong on 03/21/18. My clinical findings support the need for the requested home health care services because: Deconditioned w/ increased weakness I certify that my clinical findings support that this patient is homebound because: Post-op weakness Jaren Pardo MD Mar 21, 2018 21:09
[2018-03-21] MEDS ORDERED: WALKER WHEELS/F1 MIS (21:10)
[2018-03-22 00:26] VITALS: BP 117/57; PULSE 71; RESP 16; TEMP 98.6; O2SAT 92
[2018-03-22] MEDS: GENTAMICIN INJ 60 MG in SODIUM CHLORIDE 0.9% INJ 100 ML IV SCH ×2 (00:58→09:27)
[2018-03-22] MEDS: HYDROmorphone HCL PF 2 MG/ML VIAL IV PUSH PRN (02:15)
--- NOTE | 2018-03-22 06:49 | HHI.FF ---
Face to Face Verification Diagnosis: (1) Puncture wound of left knee Physical Therapy Left LE Weight Bearing: WB as tolerated Nursing Dressing Changes: Daily dressing change, Prakash wrap, 4x4s, Xeroform I have seen patient Stacie Dong on 03/22/18. My clinical findings support the need for the requested home health care services because: Ltd mobility - disease progression I certify that my clinical findings support that this patient is homebound because: Post-op weakness Ryan Deluca/Anthropologist Physical PA Mar 22, 2018 06:49
[2018-03-22 07:27] LABS: AUTOMATED NEUTROPHIL # 2.5 TH/MM3 (1.8-7.7); BASOPHIL % 0.7 % (0.0-2.0); EOSINOPHIL # 0.3 TH/MM3 (0-0.4); EOSINOPHIL % 7.4 % (0.0-4.0); HEMATOCRIT 33.7 % (35.0-46.0); HEMOGLOBIN 11.5 GM/DL (11.6-15.3); LYMPH % 29.9 % (9.0-44.0); LYMPHOCYTE # 1.3 TH/MM3 (1.0-4.8); MEAN CELL VOLUME 95.1 FL (80.0-100.0); MEAN CORPUSCULAR HEMOGLOBIN 32.6 PG (27.0-34.0); MEAN CORPUSCULAR HGB CONC 34.2 % (32.0-36.0); MEAN PLATELET VOLUME 9.3 FL (7.0-11.0); MONO % 6.3 % (0.0-8.0); MONOCYTE # 0.3 TH/MM3 (0-0.9); NEUT % 55.7 % (16.0-70.0); PLATELET COUNT 142 TH/MM3 (150-450); RED BLOOD COUNT 3.54 MIL/MM3 (4.00-5.30); RED CELL DISTRIBUTION WIDTH 13.6 % (11.6-17.2); WHITE BLOOD COUNT 4.4 TH/MM3 (4.0-11.0)
[2018-03-22 07:48] LABS: CALCIUM 8.4 MG/DL (8.5-10.1); CREATININE 0.6 MG/DL (0.50-1.00); DIRECT BILIRUBIN ADULT 0.2 MG/DL (0.0-0.2)
[2018-03-22 07:51] LABS: INDIRECT BILIRUBIN 0.4 MG/DL (0.0-0.8); TOTAL BILIRUBIN ADULT 0.6 MG/DL (0.2-1.0); TOTAL PROTEIN 5.4 GM/DL (6.4-8.2)
[2018-03-22 08:00] VITALS: BP 105/59; PULSE 62; RESP 16; TEMP 97.8; O2SAT 94
--- NOTE | 2018-03-22 08:15 | HHI.PR ---
Subjective Remarks Follow-up left knee laceration elevated liver function tests. States she is doing okay denies history of hepatitis and alcohol consumption. No abdominal pain, nausea and vomiting. Denies abdominal trauma. States she wants to go home today after abdominal sonogram Objective Vitals Vital Signs Date Time Temp Pulse Resp B/P (MAP) Pulse Ox O2 Delivery O2 Flow Rate FiO2 03/22/18 00:26 98.6 71 16 117/57 (77) 92 03/21/18 20:24 97.7 65 16 115/54 (74) 96 03/21/18 16:00 98.5 59 16 112/59 (76) 97 03/21/18 12:00 97.3 64 18 106/57 (73) 99 03/21/18 10:45 97.7 73 18 115/59 (77) 99 Nasal Cannula 2 03/21/18 10:30 72 18 128/60 (82) 98 Nasal Cannula 2 03/21/18 10:14 97.6 76 18 118/56 (76) 100 Nasal Cannula 2 I/O 03/21/18 03/21/18 03/21/18 03/22/18 03/22/18 03/22/18 07:00 15:00 23:00 07:00 15:00 23:00 Intake Total 601.5 ml 1100 ml 1110 ml 881.5 ml Output Total 30 ml Balance 601.5 ml 1070 ml 1110 ml 881.5 ml Intake Oral 400 ml 580 ml IV Total 601.5 ml 300 ml 710 ml 301.5 ml Other 800 ml Output Estimated Blood Loss 30 ml # Voids 3 4 3 # Bowel Movements 0 0 Result Diagram: 03/22/18 0652 03/22/18 0652 Imaging 6 5 Last Impressions Chest X-Ray 03/20/18 1900 Signed Impressions: CONCLUSION: No acute cardiopulmonary disease. Knee X-Ray 03/20/18 1816 Signed Impressions: CONCLUSION: Air in soft tissues presumably from laceration. Questionable tiny avulsion frac ture superior pole of the patella. No significant joint effusion. Objective Remarks GENERAL: Well-appearing, no acute distress SKIN: Warm and dry. CARDIOVASCULAR: Regular rate and rhythm without murmurs, gallops, or rubs. RESPIRATORY: Breath sounds equal bilaterally. No accessory muscle use. GASTROINTESTINAL: Abdomen soft, non-tender, nondistended. MUSCULOSKELETAL: No cyanosis, or edema. 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 X-ray significant for small avulsion fracture. Left knee avulsion fracture with subcutaneous air -Ortho has been consulted, antibiotics per below s/p irrigation -Pain management with Enochs and Dilaudid -IV antibiotics with Cipro and gentamicin Tachycardia, chronic -Continue home medications: atenolol, monitor in telemetry COPD, chronic, not in acute exacerbation -Duo nebs as needed Transaminitis likely med related. CK within normal limits. Improving. Check hepatitis profile and abdominal sonogram. She is asymptomatic. Will discuss with orthopedic surgery to avoid hepatotoxins DVT prophylaxis: Bilateral SCDs Discharge Planning Possible discharge today pending ultrasound and hepatitis profile Problem Qualifiers (1) Puncture wound of left knee: Qualified Codes: S81.032A - Puncture wound without foreign body, left knee, initial encounter Jaren Pardo MD Mar 22, 2018 08:15
[2018-03-22] MEDS: ATENOLOL 25 MG TAB PO SCH (09:00)
[2018-03-22] MEDS: CIPROFLOXACIN 400 MG PREMIX 200 ML IV SCH (09:28)
[2018-03-22] MEDS: DOCUSATE SODIUM 50 MG/SENNA 8.6 MG TAB PO SCH (09:28)
[2018-03-22] MEDS: DICLOFENAC SODIUM 75 MG DELAYED RELEASE TAB PO SCH (09:28)
[2018-03-22] MEDS: SODIUM CHLORIDE 0.9% FLUSH 10 ML FLUSH IV FLUSH SCH (09:28)
--- NOTE | 2018-03-22 11:00 | PD.ORT.PN ---
Subjective Subjective Remarks POD 1 s/p I&D left knee. doing well. pain controlled. out of bed with minimal difficulty Objective Vitals Vital Signs Date Time Temp Pulse Resp B/P (MAP) Pulse Ox O2 Delivery O2 Flow Rate FiO2 03/22/18 00:26 98.6 71 16 117/57 (77) 92 03/21/18 20:24 97.7 65 16 115/54 (74) 96 03/21/18 16:00 98.5 59 16 112/59 (76) 97 03/21/18 12:00 97.3 64 18 106/57 (73) 99 I/O 03/21/18 03/21/18 03/21/18 03/22/18 03/22/18 03/22/18 07:00 15:00 23:00 07:00 15:00 23:00 Intake Total 601.5 ml 1100 ml 1110 ml 881.5 ml Output Total 30 ml Balance 601.5 ml 1070 ml 1110 ml 881.5 ml Intake Oral 400 ml 580 ml IV Total 601.5 ml 300 ml 710 ml 301.5 ml Other 800 ml Output Estimated Blood Loss 30 ml # Voids 3 4 3 # Bowel Movements 0 0 Result Diagram: 03/22/18 0652 03/22/18 0652 Objective Remarks LLE: dressings clean and dry. intact. NVI Assessment & Plan Assessment and Plan 1) Left Knee I&D - POD 1 -WBAT -keep clean and dry -home with [facility] for dressing changes today f/u 2 weeks with Ryan Tapia/Counseling Director PA Mar 22, 2018 11:00
[2018-03-22 12:00] VITALS: BP 111/54; PULSE 73; RESP 16; TEMP 98.1; O2SAT 94
--- NOTE | 2018-03-22 12:16 | RADRPT ---
EXAM DATE: 03/22/2018 12:01 PM EDT AGE/SEX: 62 years / Female INDICATIONS: Pre op knee surgery. Cough. CLINICAL DATA: This is the patient's subsequent encounter. Patient reports that signs and symptoms h ave been present for 1 day and indicates a pain score of 1/10. MEDICAL/SURGICAL HISTORY: None. None. COMPARISON: No prior exams available for comparison. FINDINGS: A single AP view of the chest demonstrates the lungs to be symmetrically aerated without evidence of mass, infiltrate or effusion. The cardiomediastinal contours are unremarkable. Osseous structures a re intact. Old fractures of the right upper rib cage are noted. CONCLUSION: No acute cardiopulmonary disease. Electronically signed by: El Doty MD 03/22/2018 12:15 PM EDT
[2018-03-22] MEDS ORDERED: COMMODE 3-IN-11 MIS (12:17)
--- NOTE | 2018-03-22 12:34 | HHI.DS ---
Discharge Summary Admission Date Mar 20, 2018 at 19:14 Discharge Date: Mar 22, 2018 Admitting Diagnosis Puncture wound of left knee with subcutaneous emphysema (1) Puncture wound of left knee ICD Code: S81.032A - Puncture wound without foreign body, left knee, initial encounter Diagnosis: Principal Status: Acute Procedures Irrigation and debridement of left knee and bursa Brief History - From Admission 62-year-old female with a history of arthritis, COPD, tachycardia, OCD and asthma presented to the ED with complaints of a laceration on her left knee. She states she was using a washer meat today and the spray nozzle hit the top of her knee and the force of the water caused a laceration. Patient noted crackling under the skin around the laceration site. Patient states the pain is a throbbing, intermittent, 10/10, with no radiation, worse with movement and palpation, better with rest. Denies any associated symptoms such as chest pain or shortness of breath. CBC/BMP: 03/22/18 0652 03/22/18 0652 Significant Findings Laboratory Tests Test 03/20/18 18:57 03/21/18 11:35 03/22/18 06:52 Red Blood Count 3.95 MIL/MM3 (4.00-5.30) 3.82 MIL/MM3 (4.00-5.30) 3.54 MIL/MM3 (4.00-5.30) Eosinophils (%) (Auto) 5.4 % (0.0-4.0) 7.4 % (0.0-4.0) Basophils (%) (Auto) 2.1 % (0.0-2.0) Activated Partial Thromboplast Time 20.2 SEC (24.3-30.1) Sodium Level 134 MEQ/L (136-145) Estimat Glomerular Filtration Rate 87 ML/MIN (>89) White Blood Count 3.5 TH/MM3 (4.0-11.0) Platelet Count 145 TH/MM3 (150-450) 142 TH/MM3 (150-450) Lymphocytes # (Auto) 0.9 TH/MM3 (1.0-4.8) Total Protein 5.9 GM/DL (6.4-8.2) 5.4 GM/DL (6.4-8.2) Albumin 3.1 GM/DL (3.4-5.0) 3.0 GM/DL (3.4-5.0) Calcium Level 8.2 MG/DL (8.5-10.1) 8.4 MG/DL (8.5-10.1) Aspartate Amino Transf (AST/SGOT) 692 U/L (15-37) 253 U/L (15-37) Alanine Aminotransferase (ALT/SGPT) 615 U/L (10-53) 415 U/L (10-53) Hemoglobin 11.5 GM/DL (11.6-15.3) Hematocrit 33.7 % (35.0-46.0) Blood Urea Nitrogen 5 MG/DL (7-18) Chloride Level 108 MEQ/L (98-107) Imaging Last Impressions Chest X-Ray 03/20/180 Signed Impressions: CONCLUSION: No acute cardiopulmonary disease. Knee X-Ray 03/20/181815 Signed Impressions: CONCLUSION: Air in soft tissues presumably from laceration. Questionable tiny avulsion frac ture superior pole of the patella. No significant joint effusion. PE at Discharge GENERAL: Well-appearing, no acute distress SKIN: Warm and dry. CARDIOVASCULAR: Regular rate and rhythm without murmurs, gallops, or rubs. RESPIRATORY: Breath sounds equal bilaterally. No accessory muscle use. GASTROINTESTINAL: Abdomen soft, non-tender, nondistended. MUSCULOSKELETAL: No cyanosis, or edema. Left Knee with dry dressing Hospital Course In summary this is a 62-year-old female patient with a medically significant for arthritis, COPD, and tachycardia who presented to [place] ED with a laceration of her left knee after injury from washer meat. X-ray significant for small avulsion fracture. Left knee avulsion fracture with subcutaneous air -Ortho has been consulted, antibiotics per below s/p irrigation -Pain management with Ono and Dilaudid -Stable ct abx Keflex Tachycardia, chronic -Continue home medications: atenolol, monitor in telemetry COPD, chronic, not in acute exacerbation -Duo nebs as needed Transaminitis likely med related. CK within normal limits. Negative hepatitis profile. Improving levels. Check abdominal sonogram(outpatient since pt is not NPO and wants to go home today). She is asymptomatic. Discussed with orthopedic surgery to avoid hepatotoxins, dc cipro DVT prophylaxis: Bilateral SCDs Pt Condition on Discharge: Stable Discharge Disposition: Disch w/ Home Health Serv Discharge Time: > 30 minutes Discharge Instructions DIET: Follow Instructions for: As Tolerated, No Restrictions Activities you can perform: Regular-No Restrictions Activities to Avoid: Driving Follow up Referrals: PCP Follow-up - 1 Week Surgical - 1 Week Surgical New Orders: COMP MET PROF (CMP) - 1 Week US ABDOMEN LIVER New Medications: Cephalexin (Keflex) 500 Mg Cap 500 MG PO Q8H for Infection for 7 Days, #21 CAP 0 Refills Ciprofloxacin (Cipro) 500 Mg Tab 500 MG PO BID for Infection for 7 Days, #14 TAB 0 Refills Commode 3-in-1 (Commode 3-in-1) 1 Mis Mis EA .XX DIRECTED, #1 0 Refills Hydrocodone-Acetaminophen (Ono) 5 Mg-325 Mg Tab 1 TAB PO Q4H PRN for PAIN, #30 TAB 0 Refills Walker with Front Wheels (Walker with Front Wheels) 1 Mis Mis EA .XX DIRECTED, #1 0 Refills Continued Medications: Albuterol 8.5 GM Inh (Proair Hfa 8.5 GM Inh) 90 Mcg/Act Aer 2 PUFF INH Q4-6H PRN for SHORTNESS OF BREATH, #1 INHALER 0 Refills 108 mcg/actuation Atenolol (Atenolol) 25 Mg Tab 25 MG PO DAILY for Blood Pressure Management, #30 TAB Cyanocobalamin (B-12) 5,000 Mcg Subl 5000 MCG SL for Nutritional Supplement, TAB.SL 0 Refills Diclofenac Sodium (Voltaren) 1 % Gel..gram. Diclofenac Sodium DR (Diclofenac Sodium DR) 75 Mg Tabdr 75 MG PO BID, #60 TAB 0 Refills Latanoprost Opth Drops (Latanoprost Opth Drops) 0.005% Drops 1 DROP EACH EYE HS for Glaucoma, #2.5 ML 0 Refills Refrigerate until opened. Lidocaine Patch 12 HR (Lidocaine Patch 12 HR) 5 % Patch 1 PATCH TOPICAL DAILY PRN for PAIN, #1 BOX 0 Refills Remove patch after 12 hours Sertraline (Zoloft) 50 Mg Tab 50 MG PO DAILY, #30 TAB 0 Refills Jaren Pardo MD Mar 22, 2018 12:34
[2018-03-22] MEDS: ACETAMINOPHEN/HYDROcodone 325 MG/5 MG TAB PO PRN (15:21)
[2018-03-22] MEDS: SERTRALINE HCL 50 MG TAB PO SCH (15:21)
[2018-03-22 16:00] VITALS: BP 121/53; PULSE 65; RESP 16; TEMP 97.7; O2SAT 94
== END 2018-03-22 18:22 | disposition home or self-care (01) | DRG 988 ==
LOC: PHEFT 17:29 → PHEDA 19:11 → OBSVTOIN 19:14 → N07A 23:02
PROVIDERS: ADMIT Internal Medicine; ATTEND Internal Medicine
PROC: 0MBP0ZZ Excision of Left Knee Bursa and Ligament, Open Approach (ICD-10-PCS; principal; 2018-03-21 09:16)
DX: S81.012A Laceration without foreign body, left knee, initial encounter (principal); T79.7XXA Traumatic subcutaneous emphysema, initial encounter; J44.9 Chronic obstructive pulmonary disease, unspecified; R00.0 Tachycardia, unspecified; M79.89 Other specified soft tissue disorders; R74.0 Nonspecific elevation of levels of transaminase and lactic acid dehydrogenase [LDH]; M19.90 Unspecified osteoarthritis, unspecified site; F42.9 Obsessive-compulsive disorder, unspecified; W31.89XA Contact with other specified machinery, initial encounter; Y92.008 Other place in unspecified non-institutional (private) residence as the place of occurrence of the external cause; Z86.73 Personal history of transient ischemic attack (TIA), and cerebral infarction without residual deficits; Z87.891 Personal history of nicotine dependence
CPT/HCPCS: 71045; 73564; 80048; 80053; 80074; 80076; 82550; 85025; 85610; 85730; 90714; 93005; 94150; G8987-GP; G8988-GP; J0690; J0744; J1100; J1170; J1580; J2270; J2370; J2405; J3010; J3370; J7030; J7050